=== PATIENT | female | born 1990 | race Two or more races ===

== ENCOUNTER 2025-02-24 08:53 | Outpatient (CLI) | payer OTHER ==
[2025-02-25 10:33] LABS: Hepatitis B Surface Antigen Negative (Negative)
== END 2025-02-24 17:00 | disposition home or self-care (01) ==
LOC: LAB 08:53
PROVIDERS: ATTEND Nurse Practitioner
DX: Z77.21 Contact with and (suspected) exposure to potentially hazardous body fluids (principal); W46.0XXA Contact with hypodermic needle, initial encounter; Y93.89 Activity, other specified; Y92.89 Other specified places as the place of occurrence of the external cause; Y99.8 Other external cause status
CPT/HCPCS: 36415; 86703; 86706; 86803; 87340